=== PATIENT | male | born 1960 | race Caucasian/White ===

== ENCOUNTER 2018-02-24 07:55 | Day surgery (SDC) | payer MEDICAID ==
[~2018-02-24] VITALS: Ht 185.4 cm; Wt 155.0 kg
[2018-02-24 08:35] VITALS: BP 129/85
[2018-02-24] MEDS ORDERED: CLON-527 PO (08:38)
[2018-02-24] MEDS ORDERED: [UNRECOGNIZED DRUG - REMARK] (08:38)
[2018-02-24] MEDS ORDERED: benzotropine (08:38)
[2018-02-24] MEDS ORDERED: CLON-528 PO ×2 (09:10)
[2018-02-24] MEDS ORDERED: BENZ2TAB7 PO (09:10)
[2018-02-24] MEDS ORDERED: [UNRECOGNIZED DRUG - OTHER] PO (09:10)
[2018-02-24] MEDS ORDERED: MIDAZolam 5mg/5ml vial ONE (09:20)
[2018-02-24] MEDS ORDERED: fentaNYL/PF 50MCG/1 ML 2ML syringe ONE (09:20)
[2018-02-24] MEDS ORDERED: LIDOcaine Viscous 15ml cup ONE (09:20)
[2018-02-24 10:20] VITALS: BP 115/71
[2018-02-24 10:30] VITALS: BP 124/80
[2018-02-24 10:40] VITALS: BP 123/80
[2018-02-24 10:50] VITALS: BP 120/78
== END 2018-02-24 11:00 | disposition home or self-care (01) ==
LOC: GI LAB 07:55
PROVIDERS: ATTEND Internal Medicine Gastroenterology
DX: K29.50 Unspecified chronic gastritis without bleeding (principal); I85.00 Esophageal varices without bleeding; K31.89 Other diseases of stomach and duodenum; K76.6 Portal hypertension; F17.210 Nicotine dependence, cigarettes, uncomplicated; Z79.899 Other long term (current) drug therapy
CPT/HCPCS: 43239; 99152; J2250; J3010; J7030; A4620; G0500

== ENCOUNTER 2019-04-27 09:46 | Day surgery (SDC) | payer MEDICAID ==
[~2019-04-27] VITALS: Ht 180.3 cm; Wt 70.5 kg
[~2019-04-27 09:46] MED LIST: CLON0.5T12 PO; CLOZ100T13 PO; CLOZ25TA12 PO
[2019-04-27 09:55] VITALS: BP 118/77
[2019-04-27] MEDS ORDERED: CLON-528 PO (10:17)
[2019-04-27] MEDS ORDERED: LIDOcaine Viscous 15ml cup ONE (10:54)
[2019-04-27] MEDS ORDERED: MIDAZolam 5mg/5ml vial ONE ×2 (10:54→11:04)
[2019-04-27] MEDS ORDERED: fentaNYL/PF 50MCG/1 ML 2ML syringe ONE (10:54)
[2019-04-27 11:20] VITALS: BP 110/70
[2019-04-27 11:30] VITALS: BP 105/65
[2019-04-27 11:40] VITALS: BP 119/83
[2019-04-27 11:50] VITALS: BP 117/80
== END 2019-04-27 11:55 | disposition home or self-care (01) ==
LOC: GI LAB 09:46
PROVIDERS: ATTEND Internal Medicine Gastroenterology
DX: I85.00 Esophageal varices without bleeding (principal); K76.6 Portal hypertension; K31.89 Other diseases of stomach and duodenum; K29.70 Gastritis, unspecified, without bleeding
CPT/HCPCS: 43239; 99152; J2250; J3010; J7040; 99153; A4620

== ENCOUNTER 2024-08-27 11:02 | Outpatient (CLI) | payer BC, MEDICAID ==
[~2024-08-27 11:02] MED LIST changes: +CLON-850 PO; -CLON0.5T12 PO; +CLON0.5T4 PO; -CLOZ100T13 PO; -CLOZ25TA12 PO
== END 2024-08-27 23:59 | disposition home or self-care (01) ==
LOC: RAD 11:02
PROVIDERS: ATTEND Nurse Practitioner Psychiatric/Mental Health
DX: F20.9 Schizophrenia, unspecified (principal); R00.0 Tachycardia, unspecified; I51.7 Cardiomegaly; Z79.899 Other long term (current) drug therapy
CPT/HCPCS: 93005